=== PATIENT | female | born 1965 | race Caucasian/White ===

== ENCOUNTER 2023-01-30 12:48 | Outpatient (CLI) | payer BC ==
--- NOTE | 2023-01-30 16:21 | Ultrasound Report ---
PROCEDURE: Duplex Ext Veins Bilateral INDICATIONS: ZINA Galan TECHNIQUE: Real-time imaging, as well as color and pulse Doppler interrogation, were performed of the deep veins of both legs from the inguinal ligament to the popliteal fossa. COMPARISON: None FINDINGS: The deep veins are normally compressible, and free of intraluminal thrombus. Color and pu lse Doppler demonstrate normal phasic intravascular flow. There is normal augmentation response to d istal compression maneuver. IMPRESSION: No DVT in the bilateral lower extremities. Reviewed by: Adithya Conley on 01/30/2023 4:19 PM PDT Approved by: Adithya Conley on 01/30/2023 4:19 PM PDT Station ID: [id number]
== END 2023-01-30 12:49 | disposition home or self-care (01) ==
LOC: DI 12:48
PROVIDERS: ATTEND Registered Nurse
DX: R60.0 Localized edema (principal)
CPT/HCPCS: 93970